=== PATIENT | male | born 2000 | race Caucasian/White ===

== ENCOUNTER 2023-04-21 20:12 | Emergency (ER) | payer OTHER ==
[~2023-04-21] VITALS: Ht 182.9 cm; Wt 79.2 kg
[2023-04-22] MEDS ORDERED: PSEUDOEPHEDRINE 30 MG TAB PO STA (00:43)
[2023-04-22] MEDS ORDERED: AUGMENTIN 875 MG TAB PO ONE (00:45)
[2023-04-22] MEDS ORDERED: KETOROLAC 60MG 2ML VIAL IM ONE (00:45)
[2023-04-22] MEDS ORDERED: PSEU120T19 PO (00:50)
[2023-04-22] MEDS ORDERED: AMOX875T2 PO (00:50)
[2023-04-22] MEDS ORDERED: NORCO 5/325MG TABLET (HOME DOSE PACK) PO ONE (00:55)
[2023-04-22 01:01] VITALS: BP 122/55
== END 2023-04-22 01:04 | disposition home or self-care (01) ==
LOC: M ED 20:12
DX: H66.91 Otitis media, unspecified, right ear (principal); J06.9 Acute upper respiratory infection, unspecified; Z79.2 Long term (current) use of antibiotics; Z79.899 Other long term (current) drug therapy
CPT/HCPCS: 96372; 99283; J1885

== ENCOUNTER 2023-05-24 22:59 | Emergency (ER) | payer OTHER ==
[~2023-05-24] VITALS: Ht 182.9 cm; Wt 80.8 kg
[~2023-05-24 22:59] MED LIST: AMOX875T2 PO; PSEU120T19 PO
[2023-05-25] MEDS ORDERED: AUGMENTIN 875 MG TAB PO ONE (01:30)
[2023-05-25] MEDS ORDERED: AMOX875T2 PO (01:30)
[2023-05-25 02:09] VITALS: BP 118/72; TEMP 98.9; O2SAT 99
== END 2023-05-25 02:00 | disposition home or self-care (01) ==
LOC: M ED 22:59
DX: H72.91 Unspecified perforation of tympanic membrane, right ear (principal); Z91.018 Allergy to other foods; Z79.2 Long term (current) use of antibiotics; Z79.899 Other long term (current) drug therapy